=== PATIENT | female | born 1935 | race Caucasian/White ===

== ENCOUNTER → 2021-07-17 | Outpatient (CLI) | payer OTHER | END | disposition home or self-care (01) | LOC: SJCVCIMAG 16:19 | PROVIDERS: ATTEND Internal Medicine Cardiovascular Disease | DX: R94.31 Abnormal electrocardiogram [ECG] [EKG] (principal); I08.2 Rheumatic disorders of both aortic and tricuspid valves; K21.9 Gastro-esophageal reflux disease without esophagitis; E03.9 Hypothyroidism, unspecified; E78.5 Hyperlipidemia, unspecified; I48.0 Paroxysmal atrial fibrillation; I50.43 Acute on chronic combined systolic (congestive) and diastolic (congestive) heart failure; D68.59 Other primary thrombophilia; I49.5 Sick sinus syndrome; Z95.0 Presence of cardiac pacemaker; Z15.89 Genetic susceptibility to other disease; Z88.1 Allergy status to other antibiotic agents; Z90.49 Acquired absence of other specified parts of digestive tract; Z90.710 Acquired absence of both cervix and uterus; Z96.651 Presence of right artificial knee joint; Z96.652 Presence of left artificial knee joint; Z98.890 Other specified postprocedural states; Z79.899 Other long term (current) drug therapy; Z88.6 Allergy status to analgesic agent ==

== ENCOUNTER → 2021-07-21 | Outpatient (CLI) | payer OTHER ==
[~2021-07-21] VITALS: Ht 167.6 cm; Wt 93.9 kg
[~2021-07-21] MED LIST: CALCIUM + VITA1 EACH PO; CARAFATE 1 GM TA1 GM PO; ELIQUIS2.5 MG PO; FUROSEMIDE 40 M40 MG PO; KLOR-CON M2020 MEQ PO; LEXAPRO 10 MG T10 M2 PO; LIPITOR 40 MG T40 M1 PO; PRILOSEC10 MG PO; PROBIOTIC1 EAC7 PO; SIKLOS100 MG PO; SPIRONOLACTONE25 MG PO; SUPER THERAVIT1 EACH PO; TOPROL XL25 MG PO; VANACOF DM LIQ240 ML PO; VITAMIN D310 MC2 PO; ZYRTEC10 M4 PO
[2021-07-21 09:38] LABS: HEMATOCRIT 52.4 % (37.0-47.0); HEMOGLOBIN 16.3 gm/dL (12.0-15.0); MCH 24.7 pg (26.0-34.0); MCHC 31.1 g/dL (28.0-37.0); MCV 79.3 fL (80.0-100.0); RBC 6.61 mil/uL (4.20-5.00); RDW 18.7 % (10.5-14.5); WBC 17.9 thou/uL (4.0-11.0)
[2021-07-21 10:00] VITALS: BP 120/65
[2021-07-21 10:11] LABS: CALCIUM 8.7 mg/dL (8.5-10.1); CREATININE 1.5 mg/dL (0.6-1.0); POTASSIUM 3.3 mmol/L (3.5-5.1)
--- NOTE | 2021-07-22 13:46 | CATHLAB ---
[facility] [place] [place] [address] INVASIVE PROCEDURE REPORT Name: NIYA BRUCE Room #: REG REESE GonzalezCarolina#: [id number] Admission: 07/21/21 Attend Phys: Kg Saez MD, Discharge: Date of : [birth year] Report #: [id number] THIS REPORT FOR: cc: George Alvarado Timothy J. Mancuso, Gerald M. MD [facility] ~ APPROVED REPORT Study performed: 07/21/2021 10:13:14 Patient Details Patient Status: Out-Patient Room #: The patient is a 85 year-old female Event Personnel Kg Saez Caramel Candy Maker Helper, Dian Sunshine RN RN, Dixon Burgos RN RN, Shakila Gross RTR, Juvenal Shultz Amy RTR Monitor Procedures Performed Art Access - R femoral artery* Left Heart Cath w/or w/o Coronaries [id number] [facility] Hemostasis w/ Mynx Aortogram Abdominal Peripheral Angio [id number] Initial Mod Sed Same Phys/QHP Gr5y [id number] 68637 Mod Sed Same Phys/QHP Ea [id number] Indication Dyspnea, Positive stress test Procedure Narrative The Right Groin^ was infiltrated with 1% Lidocaine subcutaneous anesthesia. A PINNACLE 6FR Sheath #[id number] sheath was inserted into the RFA^. Coronary angiography was performed using coronary diagnostic catheters. The right coronary system was accessed and visualized with a JR4 catheter. The left coronary system was accessed and visualized with a JL4 catheter. The left ventricle was accessed and visualized with a PIGTAIL catheter. Pre-demployment femoral angiogram was performed . Closure device was deployed with a 6 Fr MYNXGRIP 6/7F #[id number]. Hemostasis was obtained with manual pressure following sheath removal without any complications. The patient tolerated the procedure well and there were no complications associated with the procedure. There was no hematoma. Intraoperative Conscious Sedation Sedation start time: 110 Case end Time: [facility] [id number] [place] [address] INVASIVE PROCEDURE REPORT Name: NIYA BRUCE [facility] [id number] Admission: 07/21/21 Attend Phys: Kg Saez, Discharge: Date of : [birth year] Report #: [id number] Fentanyl 50 mcg Versed 1 mg Fluoro Time: 1.48 minutes Dose: DAP 3322.50 cGycm2 366 mGy Contrast Type and Amount: Visipaque 70 ml Hemodynamics The aortic pressure is 113/53 mmHg with a mean of 76 mmHg. The left ventricular pressure is 126/8 mmHg with a mean of mmHg. The left ventricular end diastolic pressure is 15 mmHg. Conclusion #1 Normal left ventricular size with a moderate area of inferior wall hypokinesis EF is 45 to 50% range. Pacer leads are noted. #2 abdominal aorta is mildly calcified and ectatic no occlusive disease. #3 left main calcified large distal tapered narrowing of 40% giving rise to LAD and circumflex. #4 LAD moderately heavy proximal mid vessel calcification eccentric lesion of 50% proximal and 50% proximal mid extends around the apex moderately diseased. No occlusive disease moderate size diagonal branch patent #5 circumflex OM is nondominant with eccentric 3040% ostial lesion moderate size OM branch some faint collateralization to the inferior wall PDA off of the occluded RCA. There is also collateralization from the distal LAD. 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 Recommendations and plan: Continue aggressive risk factor modification. No indication for coronary intervention here. Of incidental note there appears to be some clot formation on pacer lead in right atrium. See LYN. Patient asymptomatic from this no evidence of endocarditis or clinical evidence of endocarditis. Will restart anticoagulation with DOAC. Have discussed the above with Dr. Raphael Alvarado primary physician in [facility]. Also discussed with daughter. <ELECTRONICALLY SIGNED> By: Kg Saez MD, FACC 07/22/21 1346 1346 1346 Kg Saez MD, FACC /INF
== END | disposition home or self-care (01) ==
LOC: CATH 07:12
PROVIDERS: ATTEND Internal Medicine Cardiovascular Disease
DX: R94.39 Abnormal result of other cardiovascular function study (principal); I25.10 Atherosclerotic heart disease of native coronary artery without angina pectoris; I25.82 Chronic total occlusion of coronary artery; R06.00 Dyspnea, unspecified; I11.0 Hypertensive heart disease with heart failure; I50.20 Unspecified systolic (congestive) heart failure; E03.9 Hypothyroidism, unspecified; E78.5 Hyperlipidemia, unspecified; K21.9 Gastro-esophageal reflux disease without esophagitis; I42.9 Cardiomyopathy, unspecified; Z98.890 Other specified postprocedural states; Z79.899 Other long term (current) drug therapy; Z86.73 Personal history of transient ischemic attack (TIA), and cerebral infarction without residual deficits; Z87.891 Personal history of nicotine dependence; Z79.01 Long term (current) use of anticoagulants; Z88.8 Allergy status to other drugs, medicaments and biological substances